=== PATIENT | female | born 1955 | race Caucasian/White ===

== ENCOUNTER → 2017-01-02 07:59 | Outpatient (CLI) | payer MEDICAID ==
[2017-01-02 08:30] LABS: HEMATOCRIT 37.7 % (36.0-48.0); HEMOGLOBIN 12.3 g/dL (12-16); WBC 5.4 10x3/uL (4.8-10.8)
[2017-01-02 08:35] LABS: APPEARANCE CLEAR (CLEAR); BILIRUBIN NEGATIVE (NEGATIVE); COLOR YELLOW (YELLOW); GLUCOSE NEGATIVE (NEGATIVE); KETONE NEGATIVE (NEGATIVE); LEUKOCYTE ESTERASE NEGATIVE (NEGATIVE); NITRITE NEGATIVE (NEGATIVE); PROTEIN NEGATIVE (NEGATIVE); SPECIFIC GRAVITY 1.015 (1.005-1.020); UROBILINOGEN NORMAL (NORMAL)
[2017-01-02 08:38] LABS: INR 0.88 (0.85-1.17); PROTIME 11.8 SECONDS (11.6-15.0)
[2017-01-02 08:40] LABS: CREATININE - SERUM 0.9 mg/dL (0.6-1.3)
== END | disposition home or self-care (01) ==
LOC: D.LAB 07:59
PROVIDERS: Specialist
DX: Z01.812 Encounter for preprocedural laboratory examination (principal); I10 Essential (primary) hypertension; T14.8 Other injury of unspecified body region; X58.XXXA Exposure to other specified factors, initial encounter; Y93.89 Activity, other specified; Y92.89 Other specified places as the place of occurrence of the external cause

== ENCOUNTER 2017-06-28 19:24 | Observation (INO) | payer MEDICAID ==
[2017-06-28 19:53] LABS: BASOPHILS 0.1 % (0-2); EOSINOPHILS 0.7 % (0-7); HEMATOCRIT 39.2 % (36.0-48.0); HEMOGLOBIN 13.1 g/dL (12-16); IMMATURE GRANULOCYTES 0.1 % (0-5); LYMPHOCYTES 44.5 % (15-50); MCH 31.3 pg (26.0-34.0); MCHC 33.4 g/dL (31.0-37.0); MCV 93.6 fL (80.0-100.0); MEAN PLATELET VOLUME 11.6 fL (7.4-10.4); MONOCYTES 6.7 % (2-11); NEUTROPHILS 47.9 % (40-80); PLATELET COUNT 279 10x3/uL (130-400); RBC 4.19 10x6/uL (4.00-5.40); RDW 13.9 % (11.5-14.5); WBC 6.7 10x3/uL (4.8-10.8)
[2017-06-28 20:15] LABS: ALBUMIN 3.5 g/dL (3.4-5.0); ALKALINE PHOSPHATASE 111 U/L (46-116); ALT (SGPT) 28 U/L (10-68); CALC OSMOLALITY 286 mosm/kg (275-300); CALCIUM 9.1 mg/dL (8.5-10.1); CARBON DIOXIDE 27.7 mmol/L (21.0-32.0); CHLORIDE - SERUM 107 mmol/L (98-107); CREATININE - SERUM 0.9 mg/dL (0.6-1.3); GLUCOSE 114 mg/dL (74-106); POTASSIUM - SERUM 3.9 mmol/L (3.5-5.1); PROTEIN - SERUM 6.9 g/dL (6.4-8.2); SODIUM 144 mmol/L (136-145); UREA NITROGEN 10 mg/dL (7-18); eGFR NON AFRICAN AMERICAN 68 mL/min (90-120)
[2017-06-28 20:17] LABS: APPEARANCE CLEAR (CLEAR); BILIRUBIN NEGATIVE (NEGATIVE); COLOR YELLOW (YELLOW); GLUCOSE NEGATIVE (NEGATIVE); KETONE NEGATIVE (NEGATIVE); NITRITE NEGATIVE (NEGATIVE); PROTEIN NEGATIVE (NEGATIVE); UROBILINOGEN NORMAL (NORMAL)
[2017-06-28 20:35] LABS: AMYLASE - SERUM 46 U/L (25-115); CKMB 0.3 U/L (0.0-3.6); CREATINE KINASE 82 UL (21-215); LIPASE 160 U/L (73-393)
[2017-06-28 20:38] LABS: TROPONIN-I < 0.017 ng/mL (0.000-0.060)
[2017-06-29] VITALS (7 sets, daily range): BP systolic 89–124; BP diastolic 46–79; BMI 32.3
[2017-06-29] LABS: CKMB 0.3 U/L (0.0-3.6); CREATINE KINASE 99 UL (21-215); TROPONIN-I < 0.017 ng/mL (0.000-0.060)
[2017-06-29] MEDS ORDERED: ULTRAM50 MG PO (00:08)
[2017-06-29] MEDS ORDERED: DEXILANT60 MG PO (00:09)
[2017-06-29] MEDS ORDERED: VALIUM10 MG PO (00:09)
[2017-06-29] MEDS ORDERED: PEPCID40 MG PO (00:09)
[2017-06-29] MEDS ORDERED: PROAIR HFA8.5 GM INH (00:12)
[2017-06-29] MEDS ORDERED: PRAVACHOL40 MG PO (00:13)
--- NOTE | 2017-06-29 06:17 | NUR ---
ASSESSMENT DONE. DENIES NEEDS.
[2017-06-29 06:39] LABS: BASOPHILS 0.3 % (0-2); EOSINOPHILS 1.2 % (0-7); HEMATOCRIT 35.3 % (36.0-48.0); HEMOGLOBIN 11.8 g/dL (12-16); IMMATURE GRANULOCYTES 0.2 % (0-5); LYMPHOCYTES 45.4 % (15-50); MCH 31.1 pg (26.0-34.0); MCHC 33.4 g/dL (31.0-37.0); MCV 93.1 fL (80.0-100.0); MEAN PLATELET VOLUME 11.5 fL (7.4-10.4); MONOCYTES 6.4 % (2-11); NEUTROPHILS 46.5 % (40-80); PLATELET COUNT 245 10x3/uL (130-400); RBC 3.79 10x6/uL (4.00-5.40); RDW 14.2 % (11.5-14.5); WBC 6.6 10x3/uL (4.8-10.8)
[2017-06-29 07:18] LABS: CALC OSMOLALITY 282 mosm/kg (275-300); CALCIUM 8.9 mg/dL (8.5-10.1); CARBON DIOXIDE 24.4 mmol/L (21.0-32.0); CHLORIDE - SERUM 107 mmol/L (98-107); CKMB 0.1 U/L (0.0-3.6); CREATINE KINASE 73 UL (21-215); GLUCOSE 109 mg/dL (74-106); POTASSIUM - SERUM 4.2 mmol/L (3.5-5.1); SODIUM 141 mmol/L (136-145); TROPONIN-I < 0.017 ng/mL (0.000-0.060); eGFR NON AFRICAN AMERICAN 60 mL/min (90-120)
[2017-06-29 07:19] LABS: UREA NITROGEN 14 mg/dL (7-18)
--- NOTE | 2017-06-29 08:59 | NUR ---
UP SOB WITH CALL LIGHT IN REACH. NO NEEDS VOICED AT THIS TIME. WILL MONITOR.
[2017-06-29 12:35] LABS: CKMB 0.3 U/L (0.0-3.6); CREATINE KINASE 64 UL (21-215)
[2017-06-29 12:39] LABS: TROPONIN-I < 0.017 ng/mL (0.000-0.060)
--- NOTE | 2017-06-29 13:05 | CN ---
PATIENT NAME:BUZZ PABLO MEDICAL RECORD: [id number] : 57 LOCATION:. D.2122 ADMIT DATE: 06/28/17 ACCOUNT: [id number] CONSULTING PHYSICIAN: RAHAT BAUTISTA MD REFERRING PHYSICIAN: CELI MUNOZ MD DATE OF CONSULTATION: 06/29/2017 HISTORY OF PRESENT ILLNESS: A 61-year-old lady with no known history of coronary artery disease. She has a history of hyperlipidemia. Actually, she was evaluated for chest pain approximately 5 years ago and had normal cath at that time. She had atypical chest pain, really jaw pain. Normal ECG, normal enzymes. We are asked to see her concerning her cardiovascular status. She has no exertional symptomatology. PAST MEDICAL HISTORY: Includes a history of gastroesophageal reflux disease and esophageal stricture. MEDICATIONS: Include pravastatin 40 daily, Valium 10 t.i.d. p.r.n., tramadol 50 q.8 p.r.n., and Pepcid 40 daily. ALLERGIES: None known. SOCIAL HISTORY: Currently, lives by herself. She is a nonsmoker. 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 REVIEW OF SYSTEMS: The patient reports easy bruising but reports no swollen glands. The patient reports no fever, no night sweats, no significant weight gain, no significant weight loss. No significant exercise tolerance. The patient reports no dry eyes, no irritation, no vision change. Patient reports no difficulty hearing and no ear pain. Patient reports no frequent nose bleeds or nose and sinus problems. Patient reports on arm pain on exertion. No shortness of breath while lying down. No history of heart murmur. Patient reports no cough, no wheezing or coughing up blood. Patient reports no abdominal pain, no vomiting. Normal appetite. No diarrhea and not vomiting blood. No nausea and no constipation. Patient reports no incontinence. No difficulty urinating. No hematuria. No increased frequency. Patient reports no muscle aches. No weakness, no arthralgias, no back pain. No swelling of the extremities. Patient reports no abnormal mole, no jaundice, no rashes. Reports no loss of consciousness. No weakness and no numbness. No seizures, dizziness, or headaches. The patient reports no depression, no sleep disturbance, feeling safe in a relationship and no alcohol abuse. Patient reports on fatigue. Reports no runny nose or sinus pressure. No itching, no hives, and no frequent sneezing. PHYSICAL EXAMINATION: GENERAL: Pleasant female in no acute distress. VITAL SIGNS: Blood pressure 106/54, pulse 65 and regular. HEENT: Normocephalic, atraumatic. NECK: No JVD or bruit. HEART: Regular. LUNGS: Ramirez clear. ABDOMEN: Soft, nontender. EXTREMITIES: Pulse is 2+ with no edema. DIAGNOSTIC DATA: ECG is normal. CONSULT REPORT [id number] BUZZ PABLO IMPRESSION: Atypical pain, negative enzymes, negative ECG. At this point in time suspect this may be gastrointestinal in origin, she is apparently scheduled for an EGD at some point. No contraindication for this from my standpoint. Okay to discharge from my standpoint. TRANSINT:[id number] Voice Confirmation ID: [id number] DOCUMENT ID: [id number] RAHAT BAUTISTA MD at 1305 CC: [id number] DICTATION DATE: 06/29/17829 ATHLETICS DIRECTOR: 06/29/17 1014 ADM IN [place] [id number] [place] [address]
--- NOTE | 2017-06-29 17:27 | NUR ---
WITHOUT CHANGES OR DISTRESS NOTED AT THIS TIME. DENIES NEEDS.
--- NOTE | 2017-06-29 20:16 | NUR ---
PT AWAKE, ALERT, ORIENTED, JUST FINISHED SHOWERING, IV WENT BAD IN THE SHOWER, IV REMOVED WITH CATH TIP INTACT BY HOLDEN MARTEL. PT IS AWARE THAT SHE IS TO BE NPO AFTER MIDNIGHT, DENIES ANY ACUTE NEEDS AT THIS TIME. I HAVE PLACED A [place] HAT IN PT'S TOILET FOR THE COLLECTION OF ORDERED STOOL. PT STATES SHE HAS NOT HAD A BM SINCE BEFORE HER ADMISSION, LAST ONE STATED WAS YESTERDAY MORNING. CONTINUE TO MONITOR PT CLOSELY. WILL HAVE IV RESITED. BED LOW, CALL LIGHT IN REACH, SIDE RAILS X 2, HOB 30 DEGREES.
--- NOTE | 2017-06-29 23:45 | NUR ---
IV RESITED TO LT FOREARM PER LITA LOPEZ. PT IS RESTING COMFORTABLY, NO NEEDS AT THIS TIME. CONTINUE TO MONITOR CLOSELY. BED LOW, CALL LIGHT IN REACH, SIDE RAILS X 2, HOB 10 DEGREES.
[2017-06-30 04:00] VITALS: BP 96/38
--- NOTE | 2017-06-30 07:49 | NUR ---
ASSESSMENT DONE. DENIES NEEDS.
[2017-06-30 08:00] VITALS: BP 109/78
--- NOTE | 2017-06-30 08:32 | NUR ---
DORI NEEDS OR COMPLAINTS. CALL LIGHT IN REACH. WILL CONT. PLAN OF CARE.
--- NOTE | 2017-06-30 11:46 | NUR ---
DC GIVEN TO PT
--- NOTE | 2017-06-30 11:53 | NUR ---
DC HOME PER PERSONAL CAR
[2017-07-06 03:09] LABS: OVA + PARASITE EXAM Final report (())
--- NOTE | 2017-07-06 09:40 | CN ---
PATIENT NAME:BUZZ PABLO MEDICAL RECORD: [id number] : 57 LOCATION:[facility] D.2122 ADMIT DATE: 06/28/17 ACCOUNT: [id number] CONSULTING PHYSICIAN: KIMBERLI WHITESIDE MD REFERRING PHYSICIAN: CELI MUNOZ MD DATE OF CONSULTATION: 06/29/2017 CHIEF COMPLAINT: Chest pain. HISTORY OF PRESENT ILLNESS: The patient was admitted with chest pain. She has been evaluated by Dr. Ottoniel Overton. The patient had a normal cardiac catheterization 5 years ago. It is very likely that her chest pain is from a gastroenterologic source. She has had similar chest pain due to hiatal hernia and due to reflux. Dr. SIDRA Pavon has been following her for this. An operation to correct her hiatal hernia was planned earlier in the year; however, the patient had a spinal operation and put off having her hiatal hernia fixed. Now, that she has been hospitalized, she would like for Dr. Pavon to perform a hiatal hernia repair. I will notify him of this in the morning. I told the patient I am not sure what Dr. Pavon's operative schedule looks like and would he be able to fit her in. I will keep her n.p.o. after midnight; however. Palpation as well as eating aggravates. Nothing alleviates. The pain is radiates down into the epigastrium. It is intermittent pain. This is a consultation note addendum. For the typed portion of the consult note, please see the chart. This would include the past medical and surgical history, current medications, social history, family history. REVIEW OF SYSTEMS: Positive for nausea. Positive for chest pain. Positive for epigastric pain. Review of systems is negative other than as is described above. PHYSICAL EXAMINATION: GENERAL: The patient does not appear acutely ill. She does not appear chronically ill. VITAL SIGNS: Reviewed. HEAD: External ears appear normal. EYES: Extraocular movements are intact. NECK: Trachea is midline. CHEST: No intercostal retractions. PULMONARY: Nonlabored, no stridor. ABDOMEN: No peritonitis with movement. PSYCHIATRIC: Normal affect. NEUROLOGIC: Nonfocal, no lethargy. The patient answers questions appropriately. BACK: No thoracic kyphosis. LYMPHATICS: No lymphangitic streaking of the exposed extremities. IMPRESSION: Chest pain likely due to painful hiatal hernia. PLAN: I will keep the patient n.p.o. after midnight. I am doubtful that she will be able to receive her operative procedure during this hospitalization. TRANSINT:[id number] Voice Confirmation ID: [id number] DOCUMENT ID: [id number] CONSULT REPORT [id number] BUZZ PABLO, KIMBERLI BOYLE at 0940 CC: [id number] DICTATION DATE: 06/29/171920 MEDICAL COORDINATOR PESTICIDE USE: 06/29/17 2342 DIS IN 06/30/17 [facility] [address] [place] [address]
[2017-07-13] MEDS ORDERED: TOPROL XL25 MG PO (08:45)
[2017-07-13] MEDS ORDERED: LEXAPRO10 MG PO (08:46)
== END 2017-06-30 11:53 | disposition home or self-care (01) ==
LOC: D.ER 19:24 → OBSVTIME 23:37 → D.M2 23:37
PROVIDERS: Family Medicine; ADMIT Emergency Medicine
DX: K44.9 Diaphragmatic hernia without obstruction or gangrene (principal); K21.9 Gastro-esophageal reflux disease without esophagitis; E78.5 Hyperlipidemia, unspecified

== ENCOUNTER 2017-07-19 05:32 | Inpatient (IN) | payer MEDICAID ==
[2017-07-13 09:18] LABS: HEMATOCRIT 37.9 % (36.0-48.0); HEMOGLOBIN 12.7 g/dL (12-16); MCH 31.6 pg (26.0-34.0); MCHC 33.5 g/dL (31.0-37.0); MCV 94.3 fL (80.0-100.0); MEAN PLATELET VOLUME 11.6 fL (7.4-10.4); RBC 4.02 10x6/uL (4.00-5.40); RDW 13.5 % (11.5-14.5); WBC 7.1 10x3/uL (4.8-10.8)
[~2017-07-19] VITALS: Ht 167.6 cm; Wt 89.5 kg
[~2017-07-19 05:32] MED LIST: DEXILANT60 MG PO; LEXAPRO10 MG PO; PEPCID40 MG PO; PRAVACHOL40 MG PO; PROAIR HFA8.5 GM INH; TOPROL XL25 MG PO; ULTRAM50 MG PO; VALIUM10 MG PO
[2017-07-19 10:57] VITALS: BP 125/82; BMI 33.0
--- NOTE | 2017-07-19 15:24 | NUR ---
PT C/O PAIN IN HER BACK. WHEN ASKED IF HAS ANY BACK PAIN HISTORY. PT VOICED "YES". PT ASKED IF SHE COULD LAY OVER ON HER SIDE TO HELP WITH HER BACK PAIN. ASSISTED PT TO HER RIGHT SIDE. PROPED PILLOW BEHIND BACK AND BETWEEN KNEES TO HELP LESSION TENSION ON BACK. PT VOICED "THATS BETTER NOW". WILL CONITNUE TO MONITOR PT
--- NOTE | 2017-07-19 15:47 | NUR ---
PT IS STILL C/O OF BACK PAIN AND RIGHT ABD PAIN BUT STATES"THE PAIN MEDICINE IS HELPING". WILL CONITNUE TO MONITOR
--- NOTE | 2017-07-19 16:25 | OP ---
PATIENT NAME: BUZZ PABLO MEDICAL RECORD: [id number] :57 LOCATION:D.[facility] ADMISSION DATE: SURGEON: DAVID COREA MD DATE OF OPERATION: 07/19/2017 SURGEON: David Corea MD PREOPERATIVE DIAGNOSES: Gastroesophageal reflux disease, hiatal hernia. POSTOPERATIVE DIAGNOSES: 1. Gastroesophageal reflux disease. 2. Grade III paraesophageal hernia. PROCEDURE: 1. Laparoscopic paraesophageal hernia repair. 2. Laparoscopic Hardeep fundoplication. ANESTHESIA: General. COMPLICATIONS: None. SPECIMENS: None. Case was clean. ESTIMATED BLOOD LOSS: 30 cc. OPERATIVE COURSE: After consent was obtained, the patient was taken to the operating room and placed in the supine position on the operating table. Next, general anesthesia was given via endotracheal intubation after a timeout was performed that confirmed the correct patient and procedure. The abdomen was then prepped and draped in typical sterile fashion. Local anesthetic was injected just above the umbilicus. A stab incision was made with 11-blade scalpel. Using a 5-mm bladeless optical trocar, the abdomen was entered under direct laparoscopic vision. Adequate pneumoperitoneum was achieved. The patient was placed in the steep reverse Trendelenburg position. At this time, all remaining trocars were placed after the administration of local anesthetic, two 5-mm trocars in the left lateral quadrant, 12-mm and 5-mm trocar in the right lateral quadrant, Baylee liver retractor in the subxiphoid position. The left lobe of the liver was elevated exposing the gastroesophageal junction. There was a large hiatal hernia. The upper third of the stomach and the cardia were present within the mediastinum. At this time, the stomach was reduced. The short gastrics were taken along the upper third of the stomach and along the cardia using the Harmonic scalpel. This continued to the level of the left crura. The left crura was skeletonized. Next, the gastrohepatic ligament was opened using the Harmonic scalpel. Dissection continued to the level of the right crura. The right crura was skeletonized with the Harmonic scalpel. At this time, circumferential dissection of the hiatus was performed as well as circumferential dissection of the hernia sac off the stomach and GE junction. Mediastinal dissection was performed until approximately 5-6 cm of intraabdominal esophagus were obtained. Next, the hiatus was closed using a 0 polypropylene Stratafix suture. Next, the cardia was passed posterior to the gastroesophageal junction. A loose floppy Hardeep fundoplication was performed with a 2-0 Stratafix PDS plus suture. At this time, the upper abdomen was copiously irrigated and suctioned. Careful attention was paid to hemostasis. OPERATIVE REPORT [id number] BUZZ PABLO The remaining portion of the abdominal cavity was inspected. There was no evidence of bowel injury. No evidence of bleeding. At this time, the Baylee liver retractor was removed. The 12-mm and an 11-mm trocar sites were closed with a 0 Vicryl suture and a Gabe-Marii suture passer. Next, all remaining instruments were removed. The abdomen was desufflated. Valsalva maneuver was performed and then the trocars were removed. The skin was closed with 4-0 Monocryl, Mastisol and Steri-Strips. At the end of the case, all needle and instrument counts were correct. No complications occurred. The patient was extubated and transferred to the PACU in stable condition. TRANSINT:[id number] Voice Confirmation ID: [id number] DOCUMENT ID: [id number] DAVID COREA MD at 1625 CC: [id number] DICTATION DATE: 07/19/17 1521 RIP TAILER: 07/19/17 1603 REG [facility] [address] [place] [address]
[2017-07-19 16:40] VITALS: BP 97/46
--- NOTE | 2017-07-19 16:40 | NUR ---
RECIEVED PT FROM SURGERY AT THIS TIME. PT RESTING IN BED WITH NO COMPLAINTS OF PAIN OR DISCOMFORT AT THIS TIME. ASSESSMENT DONE PER FLOWSHEET. BED IN LOW POSITION AND CALL LIGHT WITHIN REACH. WILL CONTINUE TO MONITOR.
[2017-07-19 17:30] VITALS: BP 97/46; Ht 167.6 cm; Wt 89.5 kg
[2017-07-19 20:00] VITALS: BP 104/59
--- NOTE | 2017-07-20 01:00 | NUR ---
NOTIFIED BY KARINA MOELLER THAT THE PATIENT'S IV WAS RED AND SWOLLEN. DELONTE CAMACHO RESITED THE PATIENT'S IV IN THE LEFT WRIST ON THE FIRST ATTEMPT.
[2017-07-20 04:00] VITALS: BP 196/43
[2017-07-20 05:36] LABS: BASOPHILS 0 % (0-2); EOSINOPHILS 0 % (0-7); HEMATOCRIT 34.1 % (36.0-48.0); HEMOGLOBIN 11.3 g/dL (12-16); IMMATURE GRANULOCYTES 0.2 % (0-5); LYMPHOCYTES 9.4 % (15-50); MCH 31.2 pg (26.0-34.0); MCHC 33.1 g/dL (31.0-37.0); MCV 94.2 fL (80.0-100.0); MEAN PLATELET VOLUME 12.9 fL (7.4-10.4); MONOCYTES 2.2 % (2-11); NEUTROPHILS 88.2 % (40-80); RBC 3.62 10x6/uL (4.00-5.40); RDW 13.7 % (11.5-14.5); WBC 9.1 10x3/uL (4.8-10.8)
[2017-07-20 05:41] LABS: PLATELET COUNT 203 10x3/uL (130-400)
[2017-07-20 06:01] LABS: ALBUMIN 2.8 g/dL (3.4-5.0); ALKALINE PHOSPHATASE 91 U/L (46-116); ALT (SGPT) 67 U/L (10-68); BILIRUBIN - TOTAL 0.41 mg/dL (0.2-1.3); CALC OSMOLALITY 278 mosm/kg (275-300); CALCIUM 8.1 mg/dL (8.5-10.1); CHLORIDE - SERUM 106 mmol/L (98-107); CREATININE - SERUM 0.6 mg/dL (0.6-1.3); GLUCOSE 122 mg/dL (74-106); POTASSIUM - SERUM 4.3 mmol/L (3.5-5.1); PROTEIN - SERUM 5.9 g/dL (6.4-8.2); SODIUM 139 mmol/L (136-145); UREA NITROGEN 13 mg/dL (7-18); eGFR NON AFRICAN AMERICAN > 90 mL/min (90-120)
[2017-07-20] MEDS ORDERED: HYDROCODON-ACE1 EAC7 PO (08:29)
[2017-07-20 08:40] VITALS: BP 91/53
--- NOTE | 2017-07-20 10:35 | NUR ---
PT LYING IN BED ON BACK, HAS JUST GOTTEN BACK FROM WALKING AROUND NURSES STATION WITH PT, ENCOURAGED PT TO WALK AND GET UP OFTEN TO CHAIR TODAY. PT TO DC HOME THIS AFTERNOON. REQUESTS AFTER 2 PENDING WHEN DAUGHTER GETS BACK. BED IN LOW PSOITION, CL IN REACH. CONTINUE WITH PT CARE PLAN
--- NOTE | 2017-07-20 11:32 | NUR ---
PT C/O NAUSEA, ADMIN PRN MED FOR PT AND DC CATHETER. CONTINUE TO ENCOURAGE PT TO GET UP AND WALK
--- NOTE | 2017-07-20 12:58 | NUR ---
PT UP AND WALKING AROUND NURSING STATTION, STATED THAT SHE IS HURTING REAL BAD AND WANTS SOMETHING STRONGER THAN JOSÉ MIGUEL TO GO HOME WITH, ALSO STATED THAT JOSÉ MIGUEL MAKES HER NAUSEOUS, ADVSIED THAT DR COREA STILL NEEDS TO COME SIGN RX AND WILL LET HIM KNOW AND SEE IF ANYTHING DIFFERENT MAY BE ORDERED
--- NOTE | 2017-07-20 15:43 | OP ---
PATIENT NAME: BUZZ PABLO MEDICAL RECORD: [id number] :57 LOCATION:D.[facility] ADMISSION DATE: SURGEON: KIMBERLI WHITESIDE MD DATE OF OPERATION: 07/19/2017 ASSISTANCE NOTE I assisted Dr. Pavon with laparoscopic paraesophageal hernia repair and laparoscopic Hardeep fundoplication. I was present during the pertinent portions of the operation. I scrubbed in as the trocars were being inserted. I then was present throughout the entire operation including closure of the trocar incisions. My involvement in the operation included: Manipulation of tissue, blunt dissection, division of a significant portion of the phrenicoesophageal ligament. Some excision of the hernia sac. Some excision of the fat pad. Some dissection in the mediastinum including blunt dissection as well as dissection with the Harmonic scalpel. Cleaning the right crura and assistance with creating a retroesophageal window. Retraction of the suture while Dr. Pavon was suturing. Elevation of the esophagus during the crural repair. Running the camera. Irrigating and aspirating. Closure of several of the trocar sites. Due to the complexity do this procedure two attending surgeons were necessary to be present during the operative procedure. TRANSINT:[id number] Voice Confirmation ID: [id number] DOCUMENT ID: [id number] KIMBERLI WHITESIDE MD at 1543 CC: [id number] DICTATION DATE: 07/19/17 153 SALES AND TRAINING SPECIALIST: 07/19/17 2132 REG [facility] [address] [place] [address]
--- NOTE | 2017-07-20 19:53 | NUR ---
DISCHARGED PER WITH BELONGINGS
== END 2017-07-20 15:54 | disposition home or self-care (01) | DRG 328 ==
LOC: D.OPS 05:32 → D.MS 05:32 → D.OPS 10:30 → D.PAN 10:35 → EDSTATUS 10:35 → D.OPS 10:45 → D.PAN 11:15 → D.OPS 16:00 → D.MS 16:00 → D.OPS 07-20 19:54
PROVIDERS: Anesthesiology; ADMIT Surgery
PROC: 0DV44ZZ Restriction of Esophagogastric Junction, Percutaneous Endoscopic Approach (ICD-10-PCS; principal; 2017-07-19 10:30)
PROC: 0BQT4ZZ Repair Diaphragm, Percutaneous Endoscopic Approach (ICD-10-PCS; 2017-07-19 10:30)
DX: K21.9 Gastro-esophageal reflux disease without esophagitis (principal); K44.9 Diaphragmatic hernia without obstruction or gangrene; Z01.812 Encounter for preprocedural laboratory examination

== ENCOUNTER 2018-08-10 16:44 | Emergency (ER) | payer OTHER ==
[~2018-08-10] VITALS: Ht 167.6 cm; Wt 88.2 kg
[~2018-08-10 16:44] MED LIST changes: +HYDROCODON-ACE1 EAC7 PO
[2018-08-10 17:09] VITALS: Ht 167.6 cm; Wt 88.2 kg
[2018-08-10] MEDS ORDERED: LISINOPRIL10 MG PO (17:10)
[2018-08-10 18:05] LABS: BASOPHILS 0.4 % (0-2); EOSINOPHILS 1.7 % (0-7); HEMATOCRIT 40.2 % (36.0-48.0); HEMOGLOBIN 13.8 g/dL (12-16); IMMATURE GRANULOCYTES 0.1 % (0-5); LYMPHOCYTES 44.5 % (15-50); MCH 32.5 pg (26.0-34.0); MCHC 34.3 g/dL (31.0-37.0); MCV 94.6 fL (80.0-100.0); MEAN PLATELET VOLUME 11.9 fL (7.4-10.4); MONOCYTES 6.1 % (2-11); NEUTROPHILS 47.2 % (40-80); RBC 4.25 10x6/uL (4.00-5.40); RDW 12.7 % (11.5-14.5); WBC 6.9 10x3/uL (4.8-10.8)
[2018-08-10 18:07] LABS: PLATELET COUNT 250 10x3/uL (130-400)
[2018-08-10 18:13] LABS: APTT 24.4 SECONDS (22.8-39.4); INR 0.92 (0.85-1.17); PROTIME 11.8 SECONDS (11.6-15.0)
[2018-08-10 18:39] LABS: ALBUMIN 3.5 g/dL (3.4-5.0); ALKALINE PHOSPHATASE 101 U/L (46-116); ALT (SGPT) 18 U/L (10-68); BILIRUBIN - TOTAL 0.23 mg/dL (0.2-1.3); CALC OSMOLALITY 277 mosm/kg (275-300); CALCIUM 9.1 mg/dL (8.5-10.1); CARBON DIOXIDE 25.3 mmol/L (21.0-32.0); CHLORIDE - SERUM 104 mmol/L (98-107); CREATININE - SERUM 0.7 mg/dL (0.6-1.3); GLUCOSE 94 mg/dL (74-106); POTASSIUM - SERUM 3.8 mmol/L (3.5-5.1); PROTEIN - SERUM 7.3 g/dL (6.4-8.2); SODIUM 140 mmol/L (136-145); UREA NITROGEN 10 mg/dL (7-18); eGFR NON AFRICAN AMERICAN 90 mL/min (90-120)
[2018-08-10 18:51] LABS: CKMB 0.8 U/L (0.0-3.6); CREATINE KINASE 97 UL (21-215); MAGNESIUM - SERUM 1.9 mg/dL (1.8-2.4)
[2018-08-10 18:52] LABS: TROPONIN-I < 0.017 ng/mL (0.000-0.060)
[2018-08-10 22:29] VITALS: BP 129/75
== END 2018-08-10 22:30 | disposition home or self-care (01) ==
LOC: D.ER 16:44
PROVIDERS: Family Medicine
DX: R09.89 Other specified symptoms and signs involving the circulatory and respiratory systems (principal)

== ENCOUNTER → 2019-08-03 13:53 | Outpatient (CLI) | payer OTHER ==
[2018-08-10 17:09] VITALS: BMI 31.3
[~2019-08-03 13:53] MED LIST changes: +LISINOPRIL10 MG PO
== END | disposition home or self-care (01) ==
LOC: D.US 13:53
PROVIDERS: ATTEND Internal Medicine Cardiovascular Disease
DX: M79.604 Pain in right leg (principal); R07.9 Chest pain, unspecified; R06.00 Dyspnea, unspecified

== ENCOUNTER → 2019-10-30 12:48 | Outpatient (CLI) | payer MEDICAID ==
[2018-08-10 17:09] VITALS: BMI 31.3
== END | disposition home or self-care (01) ==
LOC: D.NM 11:30
PROVIDERS: ATTEND Surgery
DX: K52.9 Noninfective gastroenteritis and colitis, unspecified (principal)

== ENCOUNTER 2019-12-11 05:37 | Inpatient (IN) | payer OTHER ==
[~2019-12-11] VITALS: Ht 167.6 cm; Wt 85.0 kg
[2019-12-11] VITALS (13 sets, daily range): BP systolic 80–122; BP diastolic 39–67; Ht 167.6 cm; Wt 85.0 kg
[~2019-12-11 05:37] MED LIST changes: +COLESTID1 GM; +REGLAN10 MG
[2019-12-11 06:00] LABS: HEMATOCRIT 40.1 % (36.0-48.0); MCH 31.4 pg (26.0-34.0); MCHC 32.4 g/dL (31.0-37.0); MCV 96.9 fL (80.0-100.0); MEAN PLATELET VOLUME 11.6 fL (7.4-10.4); RBC 4.14 10x6/uL (4.00-5.40); RDW 12.6 % (11.5-14.5); WBC 6.1 10x3/uL (4.8-10.8)
[2019-12-11 06:25] LABS: CALC OSMOLALITY 281 mosm/kg (275-300); CALCIUM 9.1 mg/dL (8.5-10.1); CARBON DIOXIDE 23.8 mmol/L (21.0-32.0); CHLORIDE - SERUM 108 mmol/L (98-107); CREATININE - SERUM 0.8 mg/dL (0.6-1.3); GLUCOSE 99 mg/dL (74-106); POTASSIUM - SERUM 3.9 mmol/L (3.5-5.1); SODIUM 142 mmol/L (136-145); UREA NITROGEN 10 mg/dL (7-18); eGFR NON AFRICAN AMERICAN 77 mL/min (90-120)
--- NOTE | 2019-12-11 06:43 | NUR ---
CALLED SURGERY DESK TO INFORM THEM THAT PT WILL BE ADMITTED AFTER SURGERY. DARYL STATES THAT IT WILL BE TAKEN CARE OF. WILL CALL PERIANESTHESIA MANAGER TO INFORM.
--- NOTE | 2019-12-11 10:08 | NUR ---
TO ROOM 2205 FROM PACU VIA BED. PATIENT IS WITHOUT SIGNS OF PAIN. LAP SITES X3 TO ABDOMEN CLEAN AND DRY. ICE PACK IN PLACE TO ABDOMEN. SC'D ARE ON AND WORKING. IS TO BEDSIDE WITH INSTRUCTION. MONITOR FOR NEEDS
--- NOTE | 2019-12-11 12:19 | NUR ---
BP HAS BEEN DIPPING DOWN AND THEN UP. ORDERS RECIEVED AND INITIATED.
[2019-12-11 13:07] LABS: BASOPHILS 0.1 % (0-2); EOSINOPHILS 0 % (0-7); HEMATOCRIT 36.4 % (36.0-48.0); HEMOGLOBIN 11.7 g/dL (12-16); IMMATURE GRANULOCYTES 0.2 % (0-5); LYMPHOCYTES 7.1 % (15-50); MCH 31.9 pg (26.0-34.0); MCHC 32.1 g/dL (31.0-37.0); MEAN PLATELET VOLUME 11.8 fL (7.4-10.4); MONOCYTES 0.7 % (2-11); NEUTROPHILS 91.9 % (40-80); RBC 3.67 10x6/uL (4.00-5.40); RDW 12.6 % (11.5-14.5)
[2019-12-11 13:29] LABS: MCV 99.2 fL (80.0-100.0); PLATELET COUNT 210 10x3/uL (130-400); WBC 10.7 10x3/uL (4.8-10.8)
--- NOTE | 2019-12-11 14:17 | NUR ---
BP BETTER 110/60. INSTRUCTED PATIENT WE WILL AMBULATE IN HALLS. STATES SHE WILL AFTER NAP.WITHOUT PAIN AT PRESENT.
--- NOTE | 2019-12-11 18:25 | NUR ---
FEELING BETTER. ATE 100% OF DINNER. HAS BEEN UP TO CHAIR. WILL AMB IN HALLS
[2019-12-12] VITALS: BP 90/45
--- NOTE | 2019-12-12 01:56 | NUR ---
I have reviewed this patient and I concur with the Shift Assessment completed by the Licensed Practical Nurse today this shift.
--- NOTE | 2019-12-12 03:11 | NUR ---
2230 REFUSED TO AMBULATE AT PRESENT TIME STATES JUST GOT BACK IN BED FROM GOING TO BATHROOM. NOT GOING TO WALK THIS TIME OF NITE DISCUSSED THIS WAS ORDERED BY DR COREA TO GET IN TWO MORE WALKS THIS PM.CONTINUES TO REFUSE STATES WILL DO IT IN MORNING.
[2019-12-12 04:00] VITALS: BP 100/48
[2019-12-12 04:30] LABS: BASOPHILS 0.1 % (0-2); EOSINOPHILS 0 % (0-7); HEMATOCRIT 33.4 % (36.0-48.0); HEMOGLOBIN 10.6 g/dL (12-16); IMMATURE GRANULOCYTES 0.3 % (0-5); LYMPHOCYTES 14.8 % (15-50); MCH 31.3 pg (26.0-34.0); MCHC 31.7 g/dL (31.0-37.0); MCV 98.5 fL (80.0-100.0); MONOCYTES 4.9 % (2-11); NEUTROPHILS 79.9 % (40-80); PLATELET COUNT 202 10x3/uL (130-400); RBC 3.39 10x6/uL (4.00-5.40); RDW 12.7 % (11.5-14.5); WBC 10.2 10x3/uL (4.8-10.8)
[2019-12-12 04:41] LABS: ANION GAP 12.6 mmol/L (8-16); CALCIUM 8.1 mg/dL (8.5-10.1); CARBON DIOXIDE 24.5 mmol/L (21.0-32.0); CREATININE - SERUM 0.9 mg/dL (0.6-1.3); POTASSIUM - SERUM 4.1 mmol/L (3.5-5.1)
[2019-12-12 07:54] VITALS: BP 104/49
[2019-12-12] MEDS ORDERED: HYDROCODON-ACE1 EAC7 PO (09:11)
[2019-12-12 12:06] VITALS: BP 99/42
--- NOTE | 2019-12-12 13:49 | NUR ---
WISHES FOR ME TO COME BACK AND DO DISCHARGE PAPERS. PATIENT STATES HER RIDE WILL NOT BE HERE M[facility] A[address]TER [address]
--- NOTE | 2019-12-12 15:34 | NUR ---
RIDE ON WAY FOR TRANSPORT HOME. IV DCD WITH CATH TIP NTACT. DISCHARGE INSTRUCTIONS,STATES UNDERSTANDING.HAS AMBULATED IN HALLS AND IS PASSING GAS.
[2019-12-12 15:44] VITALS: BP 126/60
--- NOTE | 2019-12-12 15:50 | NUR ---
LEFT UNIT VIA WHEELCHAIR FOR TRANSPORT HOME
== END 2019-12-12 15:50 | disposition home or self-care (01) | DRG 328 ==
LOC: D.PAN 05:37 → D.OPS 08:00 → D.MS 09:48 → D.PAN 22:01 → D.MS 22:02
PROVIDERS: Anesthesiology; ADMIT Surgery; ATTEND Surgery
PROC: 0D164ZA Bypass Stomach to Jejunum, Percutaneous Endoscopic Approach (ICD-10-PCS; principal; 2019-12-11 08:00)
DX: K31.84 Gastroparesis (principal); R13.10 Dysphagia, unspecified

== ENCOUNTER → 2020-02-28 08:10 | Outpatient (CLI) | payer OTHER ==
[2019-12-11 10:28] VITALS: BMI 30.2
== END | disposition home or self-care (01) ==
LOC: D.RAD 08:00
PROVIDERS: ATTEND Internal Medicine Gastroenterology
DX: R10.9 Unspecified abdominal pain (principal)

== ENCOUNTER 2020-03-12 17:09 | Emergency (ER) | payer OTHER ==
[~2020-03-12] VITALS: Ht 170.2 cm; Wt 79.5 kg
[2020-03-12 17:11] VITALS: Ht 170.2 cm; Wt 79.5 kg
[2020-03-12 17:44] LABS: BASOPHILS 0.1 % (0-2); EOSINOPHILS 0.5 % (0-7); HEMATOCRIT 38.8 % (36.0-48.0); HEMOGLOBIN 12.4 g/dL (12-16); LYMPHOCYTES 39.9 % (15-50); MCH 31.6 pg (26.0-34.0); MEAN PLATELET VOLUME 11.7 fL (7.4-10.4); MONOCYTES 7.1 % (2-11); NEUTROPHILS 52.4 % (40-80); RBC 3.92 10x6/uL (4.00-5.40); RDW 13.3 % (11.5-14.5); WBC 7.4 10x3/uL (4.8-10.8)
[2020-03-12 17:45] LABS: PLATELET COUNT 243 10x3/uL (130-400)
[2020-03-12 17:53] LABS: APTT 24.9 SECONDS (22.8-39.4); INR 0.99 (0.85-1.17)
[2020-03-12 17:56] LABS: ANION GAP 12.9 mmol/L (8-16); CALCIUM 9.2 mg/dL (8.5-10.1); CREATININE - SERUM 0.9 mg/dL (0.6-1.3); POTASSIUM - SERUM 3.9 mmol/L (3.5-5.1)
[2020-03-12 18:02] LABS: ALBUMIN 3.7 g/dL (3.4-5.0); BILIRUBIN - TOTAL 0.35 mg/dL (0.2-1.3)
[2020-03-12] MEDS ORDERED: ULTRAM50 MG PO (19:40)
[2020-03-12 20:03] VITALS: BP 136/83
[2020-03-12 20:48] LABS: BILIRUBIN NEGATIVE (NEGATIVE); GLUCOSE NEGATIVE (NEGATIVE); KETONE NEGATIVE (NEGATIVE); NITRITE NEGATIVE (NEGATIVE); UROBILINOGEN NORMAL (NORMAL)
== END 2020-03-12 20:04 | disposition home or self-care (01) ==
LOC: D.ER 17:09
PROVIDERS: Family Medicine
DX: S30.1XXA Contusion of abdominal wall, initial encounter (principal); S16.1XXA Strain of muscle, fascia and tendon at neck level, initial encounter; S20.219A Contusion of unspecified front wall of thorax, initial encounter; S39.012A Strain of muscle, fascia and tendon of lower back, initial encounter; S29.012A Strain of muscle and tendon of back wall of thorax, initial encounter; V89.2XXA Person injured in unspecified motor-vehicle accident, traffic, initial encounter; Y93.9 Activity, unspecified; Y92.9 Unspecified place or not applicable